=== PATIENT | male | born 1990 | race Caucasian/White ===

== ENCOUNTER 2016-07-22 11:20 | Emergency (ER) | payer MEDICAID | END 2016-07-22 14:36 | disposition home or self-care (01) | LOC: D.ER 11:20 | DX: S86.912A Strain of unspecified muscle(s) and tendon(s) at lower leg level, left leg, initial encounter (principal); X50.0XXA Overexertion from strenuous movement or load, initial encounter; X50.9XXA Other and unspecified overexertion or strenuous movements or postures, initial encounter; Y93.89 Activity, other specified; Y92.89 Other specified places as the place of occurrence of the external cause; F17.200 Nicotine dependence, unspecified, uncomplicated ==

== ENCOUNTER 2016-10-12 00:51 | Emergency (ER) | payer MEDICAID | END 2016-10-12 01:55 | disposition home or self-care (01) | LOC: D.ER 00:51 | DX: L50.9 Urticaria, unspecified (principal) ==

== ENCOUNTER 2016-10-21 06:28 | Emergency (ER) | payer MEDICAID ==
[2016-10-21 07:16] LABS: BASOPHILS 0.1 % (0-2); EOSINOPHILS 0 % (0-7); HEMATOCRIT 46.4 % (42.0-54.0); HEMOGLOBIN 16.3 g/dL (13.5-17.5); IMMATURE GRANULOCYTES 0.2 % (0-5); LYMPHOCYTES 8.3 % (15-50); MCH 32.7 pg (26.0-34.0); MCHC 35.1 g/dL (31.0-37.0); MCV 93.2 fL (80.0-100.0); MEAN PLATELET VOLUME 10.2 fL (7.4-10.4); MONOCYTES 1.2 % (2-11); NEUTROPHILS 90.2 % (40-80); PLATELET COUNT 180 10x3/uL (130-400); RBC 4.98 10x6/uL (4.20-6.10); RDW 11.8 % (11.5-14.5)
[2016-10-21 07:31] LABS: ALBUMIN 3.9 g/dL (3.4-5.0); ALKALINE PHOSPHATASE 67 U/L (46-116); ALT (SGPT) 123 U/L (10-68); AMYLASE - SERUM 81 U/L (25-115); CALC OSMOLALITY 279 mosm/kg (275-300); CHLORIDE - SERUM 103 mmol/L (98-107); GLUCOSE 159 mg/dL (74-106); LIPASE 108 U/L (73-393); POTASSIUM - SERUM 3.9 mmol/L (3.5-5.1); PROTEIN - SERUM 7.8 g/dL (6.4-8.2); SODIUM 138 mmol/L (136-145); UREA NITROGEN 14 mg/dL (7-18); eGFR NON AFRICAN AMERICAN > 90 mL/min (90-120)
== END 2016-10-21 10:02 | disposition home or self-care (01) ==
LOC: D.ER 06:28
PROVIDERS: Family Medicine
DX: K52.9 Noninfective gastroenteritis and colitis, unspecified (principal)

== ENCOUNTER 2017-01-01 17:56 | Emergency (ER) | payer MEDICAID ==
[2017-01-01 21:52] LABS: BASOPHILS 0.4 % (0-2); EOSINOPHILS 1.6 % (0-7); HEMATOCRIT 46.3 % (42.0-54.0); HEMOGLOBIN 16.3 g/dL (13.5-17.5); IMMATURE GRANULOCYTES 0.4 % (0-5); LYMPHOCYTES 26.3 % (15-50); MCH 32.9 pg (26.0-34.0); MCHC 35.2 g/dL (31.0-37.0); MCV 93.3 fL (80.0-100.0); MEAN PLATELET VOLUME 9.9 fL (7.4-10.4); NEUTROPHILS 57.3 % (40-80); PLATELET COUNT 146 10x3/uL (130-400); RBC 4.96 10x6/uL (4.20-6.10); RDW 12.1 % (11.5-14.5); WBC 5.6 10x3/uL (4.8-10.8)
[2017-01-01 22:06] LABS: ALKALINE PHOSPHATASE 74 U/L (46-116); ALT (SGPT) 181 U/L (10-68); BILIRUBIN - TOTAL 0.83 mg/dL (0.2-1.3); CALC OSMOLALITY 281 mosm/kg (275-300); CALCIUM 8.9 mg/dL (8.5-10.1); CARBON DIOXIDE 26.8 mmol/L (21.0-32.0); CHLORIDE - SERUM 102 mmol/L (98-107); CREATINE KINASE 127 UL (21-232); CREATININE - SERUM 1.2 mg/dL (0.6-1.3); GLUCOSE 140 mg/dL (74-106); MAGNESIUM - SERUM 2.4 mg/dL (1.8-2.4); POTASSIUM - SERUM 3.4 mmol/L (3.5-5.1); PROTEIN - SERUM 7.8 g/dL (6.4-8.2); SODIUM 140 mmol/L (136-145); UREA NITROGEN 16 mg/dL (7-18); eGFR NON AFRICAN AMERICAN 79 mL/min (90-120)
== END 2017-01-02 00:35 | disposition home or self-care (01) ==
LOC: D.ER 17:56
PROVIDERS: Emergency Medicine
DX: R11.10 Vomiting, unspecified (principal); R10.9 Unspecified abdominal pain; R19.7 Diarrhea, unspecified; E87.6 Hypokalemia; F17.200 Nicotine dependence, unspecified, uncomplicated

== ENCOUNTER 2017-06-25 11:24 | Emergency (ER) | payer MEDICAID | END 2017-06-25 13:35 | disposition home or self-care (01) | LOC: D.ER 11:24 | DX: S69.91XA Unspecified injury of right wrist, hand and finger(s), initial encounter (principal); Y04.2XXA Assault by strike against or bumped into by another person, initial encounter; Y93.89 Activity, other specified; Y92.019 Unspecified place in single-family (private) house as the place of occurrence of the external cause; F17.200 Nicotine dependence, unspecified, uncomplicated ==